=== PATIENT | female | born 1975 | race African-American/Black ===

== ENCOUNTER → 2018-07-13 | Outpatient (CLI) | payer SELFPAY | LOC: HHS 09:43 | DX: Z12.31 Encounter for screening mammogram for malignant neoplasm of breast (principal) ==

== ENCOUNTER 2018-09-12 22:59 | Emergency (ER) | payer SELFPAY ==
[2018-09-13] MEDS ORDERED: ASPIRIN 81 MG TABLET, CHEWABLE PO ONE (00:28)
[2018-09-13 01:11] LABS: ABSOLUTE EOSINOPHILS # (AUTO) 0.1 10^3/uL (0.0-0.6); ABSOLUTE LYMPHOCYTES (AUTO) 1.7 10^3/uL (0.5-4.7); ABSOLUTE MONOCYTES (AUTO) 0.3 10^3/uL (0.1-1.4); ABSOLUTE NEUT (AUTO) 3.5 10^3/uL (1.7-8.2); BASOPHILS % (AUTO) 0.7 % (0-2); EOSINOPHILS % (AUTO) 1.7 % (0-6); HEMATOCRIT 39.9 % (36.0-47.0); HEMOGLOBIN 13.7 g/dL (12.0-15.5); LYMPHOCYTES % (AUTO) 29.5 % (13-45); MEAN CORPUSCULAR HEMOGLOBIN 32.4 pg (27.0-33.4); MEAN CORPUSCULAR HGB CONC 34.3 g/dL (32.0-36.0); MEAN CORPUSCULAR VOLUME 95 fl (80-97); MONOCYTES % (AUTO) 5.9 % (3-13); PLATELET COUNT 311 10^3/uL (150-450); RED BLOOD COUNT 4.23 10^6/uL (3.72-5.28); RED CELL DISTRIBUTION WIDTH 13.2 % (11.5-14.0); SEGMENTED NEUTROPHILS % (AUTO) 62.2 % (42-78); TOTAL CELLS COUNTED % (AUTO) 100 %; WHITE BLOOD COUNT 5.7 10^3/uL (4.0-10.5)
[2018-09-13 01:27] LABS: ALANINE AMINOTRANSFERASE 21 U/L (9-52); ALBUMIN 4.5 g/dL (3.5-5.0); ALKALINE PHOSPHATASE 50 U/L (38-126); ANION GAP 9 (5-19); ASPARTATE AMINO TRANSFERASE 33 U/L (14-36); BILIRUBIN,DIRECT 0.3 mg/dL (0.0-0.4); BILIRUBIN,TOTAL 0.4 mg/dL (0.2-1.3); BLOOD UREA NITROGEN 18 mg/dL (7-20); CARBON DIOXIDE 28 mmol/L (22-30); CHLORIDE 105 mmol/L (98-107); GLUCOSE 104 mg/dL (75-110); POTASSIUM 3.4 mmol/L (3.6-5.0); SODIUM 141.5 mmol/L (137-145); TOTAL PROTEIN 7.6 g/dL (6.3-8.2)
--- NOTE | 2018-09-13 01:27 | ER Document Report ---
ED General - General Chief Complaint: Palpitations Stated Complaint: SHIVERS ON AND OFF Time Seen by Provider: 09/13/18 00:59 Primary Care Provider: MIKAL HUSAIN MD [NO LOCAL MD] - Follow up as needed Notes: Patient is a 42-year-old female that comes to the emergency department for chief complaint of an episode that happened prior to arrival where she felt like she had a strange feeling come over her whole body and then she started shaking in her arms and legs. She states she cannot stop shaking for several minutes and felt jittery. Afterwards this resolved. She did not lose consciousness, she denies palpitations, dizziness, chest pain, shortness of breath, nausea/vomiting, fever. She states she did eat dinner at 7 PM this evening and she did go to [employer]. She denies any current symptoms. She denies alcohol, recreational drugs. She smokes cigarettes, takes medication for hypertension and hyperlipidemia, has had , denies medical history otherwise. Significant other at bedside. TRAVEL OUTSIDE OF THE [place] IN LAST 30 DAYS: No - Related Data Allergies/Adverse Reactions: Sulfa (Sulfonamide Antibiotics) Allergy (Verified 07/09/12 17:28) Hives sulfamethoxazole [From Septra] Allergy (Verified 07/09/12 17:28) hives, chills, hallunciation trimethoprim [From Septra] Allergy (Verified 07/09/12 17:28) hives, chills, hallunciation Past Medical History - General Information source: Patient - Social History Smoking Status: Current Every Day Smoker Smoking Education Provided: Yes - <3 min Frequency of alcohol use: None Drug Abuse: None Lives with: Family Family History: Reviewed & Not Pertinent - Past Medical History Cardiac Medical History: Reports: Hx Hypertension Past Surgical History: Reports: Hx Section - x 3 - Immunizations Hx Diphtheria, Pertussis, Tetanus Vaccination: Yes Review of Systems - Review of Systems Constitutional: See HPI EENT: No symptoms reported Cardiovascular: No symptoms reported Respiratory: No symptoms reported Gastrointestinal: No symptoms reported Genitourinary: No symptoms reported Female Genitourinary: No symptoms reported Musculoskeletal: See HPI Skin: No symptoms reported Hematologic/Lymphatic: No symptoms reported Neurological/Psychological: No symptoms reported Physical Exam - Vital signs Vitals: Temp Pulse Resp BP Pulse Ox 98.2 F 76 18 131/87 H 99 09/12/18 23:10 09/12/18 23:10 09/12/18 23:10 09/12/18 23:10 09/12/18 23:10 - Notes Notes: GENERAL: Alert, interacts well. No acute distress. HEAD: Normocephalic, atraumatic. EYES: Pupils equal, round, and reactive to light. Extraocular movements intact. ENT: Oral mucosa moist, tongue midline. Oropharynx unremarkable. Airway patent. Nares patent, no nasal septal hematoma, TM's intact. NECK: Full range of motion. Supple. Trachea midline. LUNGS: Clear to auscultation bilaterally, no wheezes, rales, or rhonchi. No respiratory distress. HEART: Regular rate and rhythm. No murmur ABDOMEN: Soft, non-tender. Non-distended. Bowel sounds present in all 4 quadrants. GENITOURINARY: Deferred EXTREMITIES: Moves all 4 extremities spontaneously. No edema, normal radial and dorsalis pedis pulses bilaterally. No cyanosis. BACK: no cervical, thoracic, lumbar midline tenderness. No saddle anesthesia, normal distal neurovascular exam. Moves all extremities in full range of motion. NEUROLOGICAL: Alert and oriented x3. Normal speech. Cranial nerves II through XII grossly intact. PSYCH: Normal affect, normal mood. SKIN: Warm, dry, normal turgor. No rashes or lesions noted. Course - Re-evaluation Re-evalutation: Patient is alert and well-appearing on my evaluation. EKG shows sinus rhythm at a rate of 69, normal QTC, normal axis, possible abnormal R wave progression, no T wave inversions or ST segment changes in consecutive leads. Patient has not had any chest pain, dizziness, nausea, abdominal pain, or any other symptoms other than what sounds like either a chill or muscular cramps. Slightly strange description of symptoms. CBC, chemistry unremarkable except for hypokalemia. Troponin negative. TSH unremarkable, magnesium unremarkable. Reevaluated patient. She is still asymptomatic. Patient was given a dose of potassium. Patient states that previously she was told her potassium was low, she was able to change this by dietary supplements instead of pills. I suspect her hydrochlorothiazide is the culprit with this. I did discuss possible pot assium supplementation, she will supplement with diet, she will have this rechecked with primary care closely. Hypokalemia could be contributing to her symptoms, her symptoms are not concerning for an emergent standpoint based on her description, she remains very well-appearing on reevaluation, I discussed her work-up, follow-up, and return precautions in detail. Patient states satisfaction agreement. Stable at time of discharge. - Vital Signs Vital signs: Temp Pulse Resp BP Pulse Ox 98.1 F 60 15 130/86 H 99 09/13/18 02:37 09/13/18 02:37 09/13/18 02:37 09/13/18 02:37 09/13/18 02:37 - Laboratory Result Diagrams: 09/13/18 01:00 09/13/18 01:00 Laboratory results interpreted by me: 09/13/18 01:00 Potassium 3.4 L Discharge - Discharge Clinical Impression: Shaking, Hypokalemia Condition: Stable Disposition: HOME, SELF-CARE Additional Instructions: Your evaluation and work-up are reassuring, your potassium is low, this is been supplemented, supplement potassium in your diet and follow-up with your primary care for additional management. Her hydrochlorothiazide might be the reason your potassium has dropped, you may need a potassium supplement or other management. Return for any concerning symptoms including dizziness, palpitations, passing out, pain in your chest, fever, difficulty breathing, or any other concerning symptoms. Forms: Return to Work Referrals: MIKAL HUSAIN MD [NO LOCAL MD] - Follow up as needed
[2018-09-13] MEDS ORDERED: POTASSIUM CHLORIDE 10 MEQ CAPSULE.ER PO ONE (01:58)
--- NOTE | 2018-09-13 02:00 | RADIOLOGY REPORT (SQ) ---
EXAM DESCRIPTION: XR CHEST 1 VIEW COMPLETED DATE/TME: 09/13/2018 00:28 CLINICAL HISTORY: 42 years Female, CHEST PAIN COMPARISON: None. NUMBER OF VIEWS/TECHNIQUE: 1/AP FINDINGS: Adequate lung volume, clear parenchyma, normal cardiac silhouette, and intact bony thorax. IMPRESSION: No acute cardiopulmonary findings.
[2018-09-13 02:41] VITALS: BP 130/86
--- NOTE | 2018-09-13 14:02 | EKG REPORT ---
SEVERITY:- ABNORMAL ECG - SINUS RHYTHM ABNRM R PROG, CONSIDER ASMI OR LEAD PLACEMENT : Confirmed by: Alma Powell 13-Sep-2018 14:02:09
== END 2018-09-13 02:41 | disposition home or self-care (01) ==
LOC: ER 22:59
DX: E87.6 Hypokalemia (principal); R25.9 Unspecified abnormal involuntary movements; R00.2 Palpitations; F17.200 Nicotine dependence, unspecified, uncomplicated; Z88.2 Allergy status to sulfonamides; Z88.3 Allergy status to other anti-infective agents
CPT/HCPCS: 36415; 71045; 80053; 83735; 84443; 84484; 85025; 93005; 93010; 99284

== ENCOUNTER 2018-10-06 22:52 | Emergency (ER) | payer OTHER ==
[2018-10-07 01:46] LABS: ABSOLUTE EOSINOPHILS # (AUTO) 0.2 10^3/uL (0.0-0.6); ABSOLUTE LYMPHOCYTES (AUTO) 3.1 10^3/uL (0.5-4.7); ABSOLUTE MONOCYTES (AUTO) 0.4 10^3/uL (0.1-1.4); ABSOLUTE NEUT (AUTO) 2.5 10^3/uL (1.7-8.2); BASOPHILS % (AUTO) 0.7 % (0-2); EOSINOPHILS % (AUTO) 2.7 % (0-6); HEMATOCRIT 39.1 % (36.0-47.0); HEMOGLOBIN 13.5 g/dL (12.0-15.5); LYMPHOCYTES % (AUTO) 49.9 % (13-45); MEAN CORPUSCULAR HGB CONC 34.5 g/dL (32.0-36.0); MEAN CORPUSCULAR VOLUME 96 fl (80-97); MONOCYTES % (AUTO) 7.1 % (3-13); PLATELET COUNT 355 10^3/uL (150-450); RED BLOOD COUNT 4.08 10^6/uL (3.72-5.28); RED CELL DISTRIBUTION WIDTH 13.2 % (11.5-14.0); SEGMENTED NEUTROPHILS % (AUTO) 39.6 % (42-78); TOTAL CELLS COUNTED % (AUTO) 100 %; WHITE BLOOD COUNT 6.3 10^3/uL (4.0-10.5)
--- NOTE | 2018-10-07 01:53 | ER Document Report ---
ED Medical Screen (RME) - General Chief Complaint: Medical Complaint Stated Complaint: SHAKING Time Seen by Provider: 10/07/18 01:31 Primary Care Provider: MOODY JUAREZ MD [Primary Care Provider] - Follow up as needed Mode of Arrival: Ambulatory Information source: Patient Notes: Patient is a 42-year-old female past medical history of hypertension presenting to the emergency department chief complaint of altered sensation in the left side of her face and generalized shaking. Patient reports this is been going on for about a month. She does report changes recently to her blood pressure medications, states last time this happened she was having low potassium. Patient denies any unilateral weakness. Patient is alert, answering all questions appropriately. Exam: Patient alert, oriented, answering all questions properly. No focal neurological deficits noted. 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 Face symmetrical. I have greeted and performed a rapid initial assessment of this patient. A comprehensive ED assessment and evaluation of the patient, analysis of test results and completion of the medical decision making process will be conducted by additional ED providers. I have specifically instructed the patient or family members with the patient to immediately return to any nursing staff should anything change in the patient's condition or with their chief complaint. This medical record was dictated with voice recognizing software. There may be grammatical, syntax errors that are unintended. TRAVEL OUTSIDE OF THE [place] IN LAST 30 DAYS: No - Related Data Allergies/Adverse Reactions: Sulfa (Sulfonamide Antibiotics) Allergy (Verified 10/07/18 01:39) Hives sulfamethoxazole [From Novra] Allergy (Verified 10/07/18 01:39) hives, chills, hallunciation trimethoprim [From Novra] Allergy (Verified 10/07/18 01:39) hives, chills, hallunciation Past Medical History - Social History Frequency of alcohol use: None Drug Abuse: None - Past Medical History Cardiac Medical History: Reports: Hx Hypercholesterolemia, Hx Hypertension Renal/ Medical History: Denies: Hx Peritoneal Dialysis Past Surgical History: Reports: Hx Section - x 3 - Immunizations Hx Diphtheria, Pertussis, Tetanus Vaccination: Yes Physical Exam - Vital signs Vitals: Temp Pulse Resp BP Pulse Ox 98.2 F 80 18 135/83 H 100 10/06/18 23:02 10/06/18 23:02 10/06/18 23:02 10/06/18 23:02 10/06/18 23:02 Course - Vital Signs Vital signs: Temp Pulse Resp BP Pulse Ox 98.2 F 80 18 135/83 H 100 10/06/18 23:02 10/06/18 23:02 10/06/18 23:02 10/06/18 23:02 10/06/18 23:02 - Laboratory Result Diagrams: 10/07/18 01:14 10/07/18 01:14 Laboratory results interpreted by me: 10/07/18 01:14 Seg Neutrophils % 39.6 L Lymphocytes % 49.9 H Doctor's Discharge - Discharge Referrals: MOODY JUAREZ MD [Primary Care Provider] - Follow up as needed
[2018-10-07 01:56] LABS: ALANINE AMINOTRANSFERASE 14 U/L (9-52); ALBUMIN 4.3 g/dL (3.5-5.0); ALKALINE PHOSPHATASE 47 U/L (38-126); ANION GAP 9 (5-19); ASPARTATE AMINO TRANSFERASE 26 U/L (14-36); BILIRUBIN,DIRECT 0.3 mg/dL (0.0-0.4); BILIRUBIN,TOTAL 0.3 mg/dL (0.2-1.3); BLOOD UREA NITROGEN 16 mg/dL (7-20); CARBON DIOXIDE 25 mmol/L (22-30); CHLORIDE 106 mmol/L (98-107); CREATINE KINASE 152 U/L (30-135); GLUCOSE 97 mg/dL (75-110); POTASSIUM 4.1 mmol/L (3.6-5.0); TOTAL PROTEIN 7.3 g/dL (6.3-8.2)
[2018-10-07 01:59] LABS: APPEARANCE,URINE CLOUDY; BILIRUBIN,URINE NEGATIVE (NEGATIVE); COLOR,URINE YELLOW; GLUCOSE, URINE NEGATIVE (NEGATIVE); KETONES,URINE TRACE mg/dL (NEGATIVE); LEUKOCYTE ESTERASE,URINE MODERATE (NEGATIVE); NITRITE,URINE NEGATIVE (NEGATIVE); PROTEIN,URINE NEGATIVE (NEGATIVE); URINE SPECIFIC GRAVITY 1.024
[2018-10-07 02:08] LABS: CREATINE KINASE MB 0.98 ng/mL (<4.55)
[2018-10-07 02:09] LABS: TROPONIN I < 0.012 ng/mL
[2018-10-07 02:28] LABS: URINE AMPHETAMINES SCREEN NEGATIVE; URINE BARBITURATES SCREEN NEGATIVE; URINE BENZODIAZEPINES SCREEN NEGATIVE; URINE COCAINE SCREEN NEGATIVE; URINE MARIJUANA (THC) SCREEN UNCONFIRMED POSITIVE; URINE METHADONE SCREEN NEGATIVE; URINE PHENCYCLIDINE SCREEN NEGATIVE
[2018-10-07] MEDS ORDERED: CEPHALEXIN 500 MG CAPSULE PO ONE (02:29)
--- NOTE | 2018-10-07 02:30 | ER Document Report ---
ED General - General Chief Complaint: Medical Complaint Stated Complaint: SHAKING Time Seen by Provider: 10/07/18 01:31 Primary Care Provider: MOODY JUAREZ MD [Primary Care Provider] - Follow up as needed Mode of Arrival: Ambulatory Information source: Patient, Friend, [facility] Records Notes: 42-year-old female with hypertension, hyperlipidemia presents with complaints of forehead "twitching" body "chills" sensation in her abdomen of movement for which she was seen by [facility] and has an ultrasound scheduled and muscle aches that have been ongoing since September 12, 2018. At that time patient was found to have low potassium and was taken off of her hydrochlorothiazide and started on amlodipine. Patient denies any headache, visual changes, nausea, slurred speech , difficulty swallowing, chest pain, shortness of breath, abdominal pain, dysuria, hematuria, vaginal discharge. TRAVEL OUTSIDE OF THE [place] IN LAST 30 DAYS: No - HPI Onset: Other Onset/Duration: Intermittent Quality of pain: No pain, Other - Twitching Severity: None Pain Level: Denies Associated symptoms: Body/muscle aches, Chills. denies: Nonproductive cough, Productive cough, Earache, Fever, Hurts to breath, Leg swelling, Nausea, Vomiting, Shortness of breath, Sore throat Exacerbated by: Denies Relieved by: Denies Similar symptoms previously: Yes Recently seen / treated by doctor: Yes - Related Data Allergies/Adverse Reactions: Sulfa (Sulfonamide Antibiotics) Allergy (Verified 10/07/18 01:39) Hives sulfamethoxazole [From Septra] Allergy (Verified 10/07/18 01:39) hives, chills, hallunciation trimethoprim [From Septra] Allergy (Verified 10/07/18 01:39) hives, chills, hallunciation Past Medical History - General Information source: Patient - Social History Smoking Status: Current Every Day Smoker Cigarette use (# per day): Yes - 12 Smoking Education Provided: Yes - Smoking cessation counseling was provided for 4 minutes at the bedside Frequency of alcohol use: None Drug Abuse: None Lives with: Spouse/Significant other Family History: Reviewed & Not Pertinent Patient has suicidal ideation: No Patient has homicidal ideation: No - Past Medical History Cardiac Medical History: Reports: Hx Hypercholesterolemia, Hx Hypertension Renal/ Medical History: Denies: Hx Peritoneal Dialysis Past Surgical History: Reports: Hx Section - x 3 - Immunizations Hx Diphtheria, Pertussis, Tetanus Vaccination: Yes Review of Systems - Review of Systems Notes: REVIEW OF SYSTEMS: CONSTITUTIONAL : Denies fever, sweats. Denies recent illness. Denies weight loss, recent hospitalizations. EENT: Denies visual changes, eye pain. Denies sore throat, oral lesions, difficulty swallowing. CARDIOVASCULAR: Denies chest pain. Denies palpitations. Denies lower extremity edema. RESPIRATORY: Denies cough. Denies shortness of breath, wheezing. GASTROINTESTINAL: Denies abdominal pain or distention. Denies nausea, vomiting, or diarrhea. Denies blood in vomitus, stools, or per rectum. Denies black, tarry stools. Denies constipation. GENITOURINARY: Denies difficulty urinating, painful urination, frequency, blood in urine, or vaginal discharge. MUSCULOSKELETAL: Denies neck pain or stiffness. Denies joint pain or swelling. SKIN: Denies rash, lesions or sores. HEMATOLOGIC : Denies easy bruising or bleeding. LYMPHATIC: Denies swollen glands. NEUROLOGICAL: Denies confusion or altered mental status. Denies loss of consciousness. Denies dizziness or lightheadedness. Denies headache. Denies weakness or paralysis. Denies problems difficulty with ambulation, slurred speech. Denies sensory loss, numbness, or tingling. Denies seizures. PSYCHIATRIC: Denies anxiety or stress. Denies depression, suicidal ideation, or homicidal ideation. Denies visual or auditory hallucinations. Physical Exam - Vital signs Vitals: Temp Pulse Resp BP Pulse Ox 98.2 F 80 18 135/83 H 100 10/06/18 23:02 10/06/18 23:02 10/06/18 23:02 10/06/18 23:02 10/06/18 23:02 - Notes Notes: PHYSICAL EXAMINATION: GENERAL: Well-appearing, well-nourished and in no acute distress. HEAD: Atraumatic, normocephalic. EYES: Pupils equal round and reactive to light, extraocular movements intact, conjunctiva are normal. No temporal artery tenderness ENT: Nares patent, oropharynx clear without exudates. Moist mucous membranes. NECK: Normal range of motion, supple without lymphadenopathy LUNGS: Breath sounds clear to auscultation bilaterally and equal. No wheezes rales or rhonchi. HEART: Regular rate and rhythm without murmurs ABDOMEN: Soft, nontender, nondistended abdomen. No guarding, no rebound. No masses appreciated. Female : deferred Musculoskeletal: Normal range of motion, no pitting or edema. No cyanosis. NEUROLOGICAL: Cranial nerves grossly intact. Normal speech, normal gait. Normal sensory, motor exams. NIH 0 PSYCH: Normal mood, normal affect. SKIN: Warm, Dry, normal turgor, no rashes or lesions noted. Course - Re-evaluation Re-evalutation: 10/07/18 02:29 Laboratory 10/07/18 10/07/18 10/07/18 01:14 01:14 01:14 WBC 6.3 RBC 4.08 Hgb 13.5 Hct 39.1 MCV 96 MCH 33.0 MCHC 34.5 RDW 13.2 Plt Count 355 Seg Neutrophils % 39.6 L Lymphocytes % 49.9 H Monocytes % 7.1 Eosinophils % 2.7 Basophils % 0.7 Absolute Neutrophils 2.5 Absolute Lymphocytes 3.1 Absolute Monocytes 0.4 Absolute Eosinophils 0.2 Absolute Basophils 0.0 Sodium 139.5 Potassium 4.1 Chloride 106 Carbon Dioxide 25 Anion Gap 9 BUN 16 Creatinine 0.58 Est GFR ( Amer) > 60 Est GFR (Non-Af Amer) > 60 Glucose 97 Calcium 10.0 Magnesium 1.9 Total Bilirubin 0.3 Direct Bilirubin 0.3 Neonat Total Bilirubin Not Reportable Neonat Direct Bilirubin Not Reportable Neonat Indirect Bili Not Reportable AST 26 ALT 14 Alkaline Phosphatase 47 Creatine Kinase 152 H CK-MB (CK-2) 0.98 Troponin I < 0.012 Total Protein 7.3 Albumin 4.3 Lipase 151.6 Urine Color Urine Appearance Urine pH Ur Specific Ward Urine Protein Urine Glucose (UA) Urine Ketones Urine Blood Urine Nitrite Urine Bilirubin Urine Urobilinogen Ur Leukocyte Esterase Urine WBC (Auto) Urine RBC (Auto) Urine Bacteria (Auto) Squamous Epi Cells Auto Urine Mucus (Auto) Urine Ascorbic Acid Urine HCG, Qual 10/07/18 01:14 WBC RBC Hgb Hct MCV MCH MCHC RDW Plt Count Seg Neutrophils % Lymphocytes % Monocytes % Eosinophils % Basophils % Absolute Neutrophils Absolute Lymphocytes Absolute Monocytes Absolute Eosinophils Absolute Basophils Sodium Potassium Chloride Carbon Dioxide Anion Gap BUN Creatinine Est GFR ( Amer) Est GFR (Non-Af Amer) Glucose Calcium Magnesium Total Bilirubin Direct Bilirubin Neonat Total Bilirubin Neonat Direct Bilirubin Neonat Indirect Bili AST ALT Alkaline Phosphatase Creatine Kinase CK-MB (CK-2) Troponin I Total Protein Albumin Lipase Urine Color YELLOW Urine Appearance CLOUDY Urine pH 6.0 Ur Specific Ward 1.024 Urine Protein NEGATIVE Urine Glucose (UA) NEGATIVE Urine Ketones TRACE H Urine Blood NEGATIVE Urine Nitrite NEGATIVE Urine Bilirubin NEGATIVE Urine Urobilinogen 2.0 H Ur Leukocyte Esterase MODERATE H Urine WBC (Auto) 54 Urine RBC (Auto) 22 Urine Bacteria (Auto) TRACE Squamous Epi Cells Auto 31 Urine Mucus (Auto) MANY Urine Ascorbic Acid 40 H Urine HCG, Qual NEGATIVE Temp Pulse Resp BP Pulse Ox 98.2 F 80 18 135/83 H 100 10/06/18 23:02 10/06/18 23:02 10/06/18 23:02 10/06/18 23:02 10/06/18 23:[address] 10/07/18 01:50 IMPRESSION: No acute intracranial abnormality. 10/07/18 03:18 Patient presents with symptoms consistent with an acute cystitis. Vitals wnl. No history of fever, flank pain, or constitution symptoms to suggest ascending infection at this time. Patient is well in appearance, tolerating oral intake without difficulty. No focal abdominal tenderness to suggest acute appendicitis, biliary pathology, acute pancreatitis, tubo-ovarian abscesses, or pelvic inflammatory disease. Patient will be started on antibiotics at this time. A culture has been sent. They will be discharged with return precautions and follow-up recommendations. 10/08/18 16:18 - Vital Signs Vital signs: Temp Pulse Resp BP Pulse Ox 98.1 F 75 18 143/90 H 100 10/07/18 03:37 10/07/18 03:37 10/07/18 03:37 10/07/18 03:37 10/07/18 03:37 - Laboratory Result Diagrams: 10/07/18 01:14 10/07/18 01:14 Laboratory results interpreted by me: 10/07/18 10/07/18 10/07/18 01:14 01:14 01:14 Seg Neutrophils % 39.6 L Lymphocytes % 49.9 H Creatine Kinase 152 H Urine Ketones TRACE H Urine Urobilinogen 2.0 H Ur Leukocyte Esterase MODERATE H Urine Ascorbic Acid 40 H - Diagnostic Test Radiology reviewed: Image reviewed, Reports reviewed Discharge - Discharge Clinical Impression: Chills (without fever), Facial twitching, Marijuana use Urinary tract infection Qualifiers: Urinary tract infection type: site unspecified Hematuria presence: without hematuria Qualified Code(s): N39.0 - Urinary tract infection, site not specified Condition: Good Disposition: HOME, SELF-CARE Instructions: Urinary Tract Infection ([facility]) Additional Instructions: Your urine shows findings consistent with a urinary tract infection. Please take all the antibiotics as directed even if your symptoms have improved. Please follow-up with your primary care physician as needed. Return to emergency room if you develop fever >101F, persistent vomiting, become lethargic, have severe pain in your sides, or any other symptoms that are concerning to you. Prescriptions: Cephalexin Monohydrate [Keflex 500 mg Capsule] 500 mg PO BID 5 Days #10 capsule Forms: Elevated Blood Pressure, Smoking Cessation Education Referrals: MOODY JUAREZ MD [Primary Care Provider] - Follow up as needed
--- NOTE | 2018-10-07 02:51 | RADIOLOGY REPORT (SQ) ---
CT head without contrast on 10/07/2018 at 1:57 AM CLINICAL INDICATION: Altered sensation in left face, shaking TECHNIQUE: Multiple axial images are obtained throughout the head without the administration of contrast. This exam was performed according to our departmental dose-optimization program, which includes automated exposure control, adjustment of the mA and/or kV according to patient size and/or use of iterative reconstruction technique. Total DLP is 990.56 mGy*cm. COMPARISON: None FINDINGS: There is no hydrocephalus. There is no CT evidence of acute infarct. There is no hemorrhage. There are no abnormal extra-axial fluid collections. There is no mass, mass effect or midline shift. No bony abnormality is noted. IMPRESSION: No acute intracranial abnormality.
[2018-10-07 03:37] VITALS: BP 143/90
== END 2018-10-07 03:39 | disposition home or self-care (01) ==
LOC: ER 22:52
PROC: HZ31ZZZ Individual Counseling for Substance Abuse Treatment, Behavioral (ICD-10-PCS; principal; 2018-10-06)
DX: R25.3 Fasciculation (principal); N39.0 Urinary tract infection, site not specified; R68.83 Chills (without fever); F12.90 Cannabis use, unspecified, uncomplicated; I10 Essential (primary) hypertension; E78.5 Hyperlipidemia, unspecified; F17.210 Nicotine dependence, cigarettes, uncomplicated; Z79.899 Other long term (current) drug therapy
CPT/HCPCS: 36415; 70450; 80053; 80307; 81001; 81025; 82550; 82553; 83690; 83735; 84484; 85025; 99284; 99406

== ENCOUNTER → 2018-10-11 | Outpatient (CLI) | payer OTHER ==
--- NOTE | 2018-10-11 13:14 | WOMENS IMAGING REPORT ---
EXAM DESCRIPTION: U/S ABDOMEN TOTAL COMPLETED DATE/TIME: 10/11/2018 10:47 am REASON FOR STUDY: R10.31 RIGHT LOWER QUADRANT PAIN R10.31 RIGHT LOWER QUADRANT PAIN COMPARISON: None. TECHNIQUE: Dynamic and static grayscale images acquired of the abdomen and recorded on PACS. Additio nal selected color Doppler and spectral images recorded. Note: Study does not meet criteria for complete doppler/duplex scan LIMITATIONS: None. FINDINGS: PANCREAS: Midline pancreas unremarkable. LIVER: No masses. Echotexture normal. LIVER VASCULATURE: Normal directional flow of the main portal vein and hepatic veins. GALLBLADDER: Partially contracted. No stones. Normal wall thickness. No pericholecystic fluid. ULTRASOUND-DETECTED MAHAJAN'S SIGN: Negative. INTRAHEPATIC DUCTS AND COMMON DUCT: CBD and intrahepatic ducts normal caliber. No filling defects. INFERIOR VENA CAVA: Normal flow. AORTA: No aneurysm. RIGHT KIDNEY: Normal size. Normal echogenicity. No solid or suspicious masses. No hydronephros is. No calcifications. LEFT KIDNEY: Normal size. Normal echogenicity. No solid or suspicious masses. No hydronephrosi s. No calcifications. SPLEEN: Normal size. No solid masses. PERITONEAL AND PLEURAL SPACES: No ascites or effusions. OTHER: No other significant finding. IMPRESSION: NORMAL ABDOMINAL ULTRASOUND. TECHNICAL DOCUMENTATION: JOB ID: [id number] [employer]- All Rights Reserved Reading location - IP/workstation name: [email or web address]
--- NOTE | 2018-10-11 13:16 | WOMENS IMAGING REPORT ---
EXAM DESCRIPTION: U/S PELVIS NON-OB COMPLETED DATE/TIME: 10/11/2018 10:47 am REASON FOR STUDY: R10.31 RIGHT LOWER QUADRANT PAIN R10.31 RIGHT LOWER QUADRANT PAIN COMPARISON: None. TECHNIQUE: Dynamic and static grayscale images acquired of the pelvis via transabdominal approach an d recorded on PACS. Additional selected color Doppler and spectral images recorded. LIMITATIONS: None. FINDINGS: UTERUS: Contour normal. No mass. Uterus is 14 x 7 x 4 cm in size ENDOMETRIAL STRIPE: No focal or generalized thickening. No masses. Endometrium 5 mm in thickness. CERVIX: No nabothian cysts. Closed, 3 cm in length. RIGHT OVARY AND DOPPLER: Normal size, 4.4 x 3.7 x 2.7 cm in size with a 2 cm simple cyst. No worriso me masses. Normal arterial vascular flow without evidence for torsion. LEFT OVARY AND DOPPLER: Not visualized FREE FLUID: None noted. OTHER: No other significant finding. IMPRESSION: Nonvisualization left ovary. 2 cm simple cyst right ovary. Otherwise unremarkable study TECHNICAL DOCUMENTATION: JOB ID: [id number]- All Rights Reserved Rev-07/27 Reading location - IP/workstation name: [email or web address]
== END ==
LOC: WI 09:46
PROVIDERS: ATTEND Nurse Practitioner Family
DX: R10.9 Unspecified abdominal pain (principal)
CPT/HCPCS: 76700; 76856

== ENCOUNTER 2018-11-01 14:08 | Emergency (ER) | payer OTHER ==
[2018-11-01 17:01] LABS: APPEARANCE,URINE CLEAR; BILIRUBIN,URINE NEGATIVE (NEGATIVE); COLOR,URINE STRAW; GLUCOSE, URINE NEGATIVE (NEGATIVE); KETONES,URINE NEGATIVE (NEGATIVE); LEUKOCYTE ESTERASE,URINE TRACE (NEGATIVE); NITRITE,URINE NEGATIVE (NEGATIVE); PROTEIN,URINE NEGATIVE (NEGATIVE); URINE SPECIFIC GRAVITY 1.004; UROBILINOGEN,URINE NEGATIVE mg/dL (<2.0)
--- NOTE | 2018-11-01 17:29 | ER Document Report ---
HPI - HPI Time Seen by Provider: 11/01/18 15:28 Pain Level: 4 Notes: Patient is an otherwise healthy 42-year-old female presented to the emergency department chief complaint of right sided low back pain. Patient reports his back pain has been going on for several weeks. She does report she had a recent UTI that she took and completed a course of antibiotics for. She denies any dysuria, abdominal pain or fevers. - GASTROINTESTINAL Gastrointestinal: REPORTS: Abdominal Pain - REPRODUCTIVE Reproductive: DENIES: : Past Medical History - General Information source: Patient - Social History Smoking Status: Current Every Day Smoker Chew tobacco use (# tins/day): No Frequency of alcohol use: None Drug Abuse: None Family History: Reviewed & Not Pertinent Patient has suicidal ideation: No Patient has homicidal ideation: No - Past Medical History Cardiac Medical History: Reports: Hx Hypercholesterolemia, Hx Hypertension Renal/ Medical History: Denies: Hx Peritoneal Dialysis Past Surgical History: Reports: Hx Section - x 3 - Immunizations Hx Diphtheria, Pertussis, Tetanus Vaccination: Yes Vertical Provider Document - CONSTITUTIONAL Notes: PHYSICAL EXAMINATION: GENERAL: Well-appearing, well-nourished and in no acute distress. HEAD: Atraumatic, normocephalic. EYES: Pupils equal round extraocular movements intact, conjunctiva are normal. ENT: Nares patent NECK: Normal range of motion LUNGS: No respiratory distress abdomen: Abdomen soft, nontender with no guarding and no rebound. Musculoskeletal: Normal range of motion, tenderness to palpation to the right lumbar paraspinous region, no CVA tenderness. NEUROLOGICAL: Normal speech, normal gait. PSYCH: Normal mood, normal affect. SKIN: Warm, Dry, normal turgor, no rashes or lesions noted. - INFECTION CONTROL TRAVEL OUTSIDE OF THE [place] IN LAST 30 DAYS: No Course - Re-evaluation Re-evalutation: History and physical examination most consistent with lumbar strain. Urinalysis was obtained as patient has recently had a urinary tract infection, the urinalysis is unremarkable, no evidence of infection. Patient will be treated with muscle relaxers and close follow-up with her PCP. Patient verbalized understanding and agreement with this plan. The patient's emergency department workup and current diagnosis were explained to the patient and or family. Follow-up instructions were provided. Medications if prescribed were discussed. Instructions for when to return to the emergency department including specific worrisome symptoms were discussed with the patient and/or family. - Vital Signs Vital signs: Temp Pulse Resp BP Pulse Ox 98.7 F 80 16 149/86 H 98 11/01/18 14:20 11/01/18 14:20 11/01/18 14:20 11/01/18 14:20 11/01/18 14:20 - Laboratory Laboratory results interpreted by me: 11/01/18 15:55 Urine Blood SMALL H Ur Leukocyte Esterase TRACE H Discharge - Discharge Clinical Impression: Low back pain Qualifiers: Chronicity: acute Back pain laterality: bilateral Sciatica presence: without sciatica Qualified Code(s): M54.5 - Low back pain Condition: Stable Disposition: HOME, SELF-CARE Additional Instructions: You have been seen in the Emergency Department (ED) today for back pain. The urinalysis was negative today and does not show any signs of urinary tract infection. Your workup and exam have not shown any acute abnormalities and you are likely suffering from muscle strain or possible problems with your discs, but there is no treatment that will fix your symptoms at this time. Please take the muscle relaxer that has been prescribed as directed. Take ibuprofen 600 mg every 6 hours. You should also purchase a local lidocaine cream such as "aspercreme with lidocaine" and use per bottle instructions to the affected area. Apply heat to the area as often as you are able. Continue to keep active and avoid prolonged periods of bed rest. Please follow up with your doctor as soon as possible regarding today's ED visit and your back pain. Return to the ED for worsening back pain, fever, weakness or numbness of either leg, or if you develop either (1) an inability to urinate or have bowel movements, or (2) loss of your ability to control your bathroom functions (if you start having "accidents"), or if you develop other new symptoms that concern you.concern you. Prescriptions: Methocarbamol [Robaxin 750 mg Tablet] 750 mg PO Q4 #30 tablet Referrals: MOODY JUAREZ MD [Primary Care Provider] - Follow up as needed
[2018-11-01 17:43] VITALS: BP 139/93
== END 2018-11-01 17:50 | disposition home or self-care (01) ==
LOC: ER 14:08
DX: M54.5 Low back pain (principal); F17.200 Nicotine dependence, unspecified, uncomplicated; I10 Essential (primary) hypertension
CPT/HCPCS: 81001; 99283

== ENCOUNTER 2018-12-02 15:20 | Emergency (ER) | payer OTHER ==
--- NOTE | 2018-12-02 15:47 | ER Document Report ---
ED Medical Screen (RME) - General Chief Complaint: Tremor Stated Complaint: POSSIBLE MUSCLE SPAMS Time Seen by Provider: 12/02/18 15:33 Primary Care Provider: MOODY JUAREZ MD [Primary Care Provider] - Follow up as needed Notes: 42-year-old female with hypertension presents emergency department with chief complaint of muscle fasciculations. Patient states that she got a sensation on the left side of her face that then extended to her extremities this morning that lasted for about 30 minutes. Patient states that she was having these symptoms intermittently in the past when she was on a thiazide diuretic but is no longer on it. This is the first time this is happened since her medications have been switched but there has not been a new switch. She denies any prodrome, was conscious throughout the entire episode, describes it as "my muscles jumping", denies any acute limb weakness or pain, denies cramping. No other complaints Exam: Well-appearing in no acute distress, lungs clear to auscultation in all galloway, regular cardiac rate and rhythm. 5/5 strength and proximal and distal extremities, 5/5 operations/dispatch strength, sensation intact to light touch. I have greeted and performed a rapid initial assessment of this patient. A comprehensive ED assessment and evaluation of the patient, analysis of test results and completion of medical decision making process will be conducted by an additional ED providers. TRAVEL OUTSIDE OF THE [place] IN LAST 30 DAYS: No - Related Data Allergies/Adverse Reactions: Sulfa (Sulfonamide Antibiotics) Allergy (Verified 11/01/18 14:14) Hives sulfamethoxazole [From Novra] Allergy (Verified 11/01/18 14:14) hives, chills, hallunciation trimethoprim [From Novra] Allergy (Verified 11/01/18 14:14) hives, chills, hallunciation Past Medical History - Past Medical History Cardiac Medical History: Reports: Hx Hypercholesterolemia, Hx Hypertension Renal/ Medical History: Denies: Hx Peritoneal Dialysis Past Surgical History: Reports: Hx Section - x 3 - Immunizations Hx Diphtheria, Pertussis, Tetanus Vaccination: Yes Physical Exam - Vital signs Vitals: Temp Pulse Resp BP Pulse Ox 98.6 F 103 H 15 122/72 97 12/02/18 15:27 12/02/18 15:27 12/02/18 15:27 12/02/18 15:27 12/02/18 15:27 Course - Vital Signs Vital signs: Temp Pulse Resp BP Pulse Ox 98.6 F 103 H 15 122/72 97 12/02/18 15:27 12/02/18 15:27 12/02/18 15:27 12/02/18 15:27 12/02/18 15:27 Doctor's Discharge - Discharge Referrals: MOODY JUAREZ MD [Primary Care Provider] - Follow up as needed
[2018-12-02 16:15] LABS: ABSOLUTE EOSINOPHILS # (AUTO) 0.1 10^3/uL (0.0-0.6); ABSOLUTE LYMPHOCYTES (AUTO) 2.6 10^3/uL (0.5-4.7); ABSOLUTE MONOCYTES (AUTO) 0.4 10^3/uL (0.1-1.4); ABSOLUTE NEUT (AUTO) 2.1 10^3/uL (1.7-8.2); BASOPHILS % (AUTO) 0.7 % (0-2); HEMATOCRIT 40.9 % (36.0-47.0); HEMOGLOBIN 13.9 g/dL (12.0-15.5); MEAN CORPUSCULAR HEMOGLOBIN 32.1 pg (27.0-33.4); MEAN CORPUSCULAR HGB CONC 33.9 g/dL (32.0-36.0); MEAN CORPUSCULAR VOLUME 95 fl (80-97); PLATELET COUNT 354 10^3/uL (150-450); RED BLOOD COUNT 4.33 10^6/uL (3.72-5.28); RED CELL DISTRIBUTION WIDTH 13.1 % (11.5-14.0); SEGMENTED NEUTROPHILS % (AUTO) 41.3 % (42-78); TOTAL CELLS COUNTED % (AUTO) 100 %; WHITE BLOOD COUNT 5.2 10^3/uL (4.0-10.5)
[2018-12-02 16:22] LABS: APPEARANCE,URINE SLIGHTLY-CLOUDY; BILIRUBIN,URINE NEGATIVE (NEGATIVE); COLOR,URINE YELLOW; GLUCOSE, URINE NEGATIVE (NEGATIVE); KETONES,URINE NEGATIVE (NEGATIVE); LEUKOCYTE ESTERASE,URINE MODERATE (NEGATIVE); NITRITE,URINE NEGATIVE (NEGATIVE); PROTEIN,URINE NEGATIVE (NEGATIVE); URINE SPECIFIC GRAVITY 1.019; UROBILINOGEN,URINE NEGATIVE mg/dL (<2.0)
[2018-12-02 16:32] LABS: ALBUMIN 4.8 g/dL (3.5-5.0); ALKALINE PHOSPHATASE 55 U/L (38-126); ANION GAP 11 (5-19); ASPARTATE AMINO TRANSFERASE 28 U/L (14-36); BILIRUBIN,DIRECT 0.1 mg/dL (0.0-0.4); BILIRUBIN,TOTAL 0.5 mg/dL (0.2-1.3); BLOOD UREA NITROGEN 15 mg/dL (7-20); CARBON DIOXIDE 25 mmol/L (22-30); CHLORIDE 103 mmol/L (98-107); GLUCOSE 96 mg/dL (75-110); POTASSIUM 3.7 mmol/L (3.6-5.0); TOTAL PROTEIN 8.3 g/dL (6.3-8.2)
--- NOTE | 2018-12-02 17:02 | ER Document Report ---
ED General - General Chief Complaint: Tremor Stated Complaint: POSSIBLE MUSCLE SPAMS Time Seen by Provider: 12/02/18 15:33 Primary Care Provider: MOODY JUAREZ MD [Primary Care Provider] - Follow up as needed TRAVEL OUTSIDE OF THE [place] IN LAST 30 DAYS: No - HPI Notes: Patient is a 42-year-old female with history of hypertension and hypercholesteremia who presents complaining of feeling her muscles "jumping" and twitching lasted for less than 30 minutes this morning and then resolved. Patient states that this is happened a couple times previously as well and was told that the first is because her potassium was low which she switch medicine for and then the next time in September she was diagnosed with a UTI here in the emergency department. Patient has had some urinary frequency recently. Patient states that the symptoms have not recurred and she is otherwise feeling well. No recent illness otherwise. No other changes in medications. Denies any headache, fever, head injury, neck pain, changes in vision/speech/mentation/hearing, URI, sore throat, chest pain, palpitations, syncope, cough, shortness of breath, wheeze, dyspnea, abdominal pain, nausea/vomiting/diarrhea, urinary retention, dysuria, hematuria, loss of control of bowel or bladder, numbness/tingling, saddle anesthesia, muscle paralysis/weakness, or rash. - Related Data Allergies/Adverse Reactions: Sulfa (Sulfonamide Antibiotics) Allergy (Verified 11/01/18 14:14) Hives sulfamethoxazole [From Novra] Allergy (Verified 11/01/18 14:14) hives, chills, hallunciation trimethoprim [From ] Allergy (Verified 11/01/18 14:14) hives, chills, hallunciation Past Medical History - Social History Smoking Status: Never Smoker Family History: Reviewed & Not Pertinent Patient has suicidal ideation: No Patient has homicidal ideation: No - Past Medical History Cardiac Medical History: Reports: Hx Hypercholesterolemia, Hx Hypertension Renal/ Medical History: Denies: Hx Peritoneal Dialysis Past Surgical History: Reports: Hx Section - x 3 - Immunizations Hx Diphtheria, Pertussis, Tetanus Vaccination: Yes Review of Systems - Review of Systems -: Yes All other systems reviewed and negative Physical Exam - Vital signs Vitals: Temp Pulse Resp BP Pulse Ox 98.6 F 103 H 15 122/72 97 12/02/18 15:27 12/02/18 15:27 12/02/18 15:27 12/02/18 15:27 12/02/18 15:27 - Notes Notes: PHYSICAL EXAMINATION: GENERAL: Well-appearing, well-nourished and in no acute distress. A&Ox4. Answers questions appropriately. HEAD: Atraumatic, normocephalic. Non-tender. EYES: Pupils equal round and reactive to light, extraocular movements intact, sclera anicteric, conjunctiva are normal. No nystagmus. vis galloway intact. ENT: Nares patent and without discharge. oropharynx clear without exudates. No tonsilar hypertrophy or erythema. Moist mucous membranes. NECK: Normal range of motion, supple without lymphadenopathy. No rigidity/meningismus. No midline tenderness. LUNGS: Breath sounds clear to auscultation bilaterally and equal. No wheezes rales or rhonchi. HEART: Regular rate and rhythm without murmurs, rubs, gallops. ABDOMEN: Soft, nontender, nondistended abdomen. No guarding, no rebound. Normal bowel sounds present. No CVA tenderness bilaterally. Musculoskeletal: Ext b/l: FROM to passive/active. Strength 5+/5. No deficits noted. No bony tenderness of extremities. Extremities: No cyanosis, clubbing, or edema b/l. Peripheral pulses 2+. Capillary refill less than 2 seconds. NEUROLOGICAL: NIH 0. GCS 15. Cranial nerves grossly intact. Normal speech, normal gait. Normal sensory, motor exams. Reflexes 2+ b/l. BELLE's negative. Pronator drift negative. Heel/peñaloza, finger/nose wnl. Romberg neg. PSYCH: Normal mood, normal affect. SKIN: Warm, Dry, normal turgor, no rashes or lesions noted. Course - Re-evaluation Re-evalutation: 12/02/18 Patient is an afebrile, well-hydrated, 42-year-old female who presents to the ED with urinary frequency and possible acute UTI. Vitals are acceptable without any significant tachycardia, tachypnea, or hypoxia. PE is otherwise unr emarkable for any focal neurological deficits. Abd is soft and non-tender. NIH 0, GCS 15, cranial nerves grossly intact. Patient has had brief symptoms like this in the past. Labs are unremarkable. No labs or imaging warranted at this time based on H&P. Pt has been otherwise asymptomatic aside from urinary frequency since this morning. She is nontoxic-appearing and is tolerating p.o. without any difficulties. Low suspicion for any acute glaucoma, temporal arteritis, meningitis, intracranial hemorrhage, ischemic stroke, acute abd, severe electrolyte abnormality, thyroid storm, or fracture at this time. Patient is aware that this condition can change from initial presentation and that she needs to monitor symptoms closely for any acute changes. Recheck with your PCM/neurologist in 3-5 days. Return to the ED with any worsening/concerning symptoms otherwise as reviewed in discharge. Patient is in agreement. - Vital Signs Vital signs: Temp Pulse Resp BP Pulse Ox 98.6 F 103 H 15 122/72 97 12/02/18 15:27 12/02/18 15:27 12/02/18 15:27 12/02/18 15:27 12/02/18 15:27 - Laboratory Result Diagrams: 12/02/18 15:45 12/02/18 15:45 Laboratory results interpreted by me: 12/02/18 12/02/18 12/02/18 15:45 15:45 15:45 Lymph % (Auto) 50.0 H Seg Neutrophils % 41.3 L Total Protein 8.3 H Urine Blood MODERATE H Ur Leukocyte Esterase MODERATE H Urine Ascorbic Acid 40 H Discharge - Discharge Clinical Impression: Acute UTI (urinary tract infection) Condition: Stable Disposition: HOME, SELF-CARE Instructions: Urinary Tract Infection ([facility]), Cephalexin ([facility]) Additional Instructions: Push fluids (i.e. water, cranberry juice) Proper hygenic technique Keep the skin clean Tylenol/ibuprofen as needed Take medications as directed F/u with your PCM in 3-5 days for a recheck Keep appointment with neurology Consider consult with a Urologist for ongoing/worsening symptoms. Return to the ED with any worsening symptoms and/or development of fever, hea dache, changes in behavior/mentation/vision/speech, chest pain, palpitations, syncope, shortness of breath, trouble breathing, abdominal pain, n/v/d, blood in stool/urine, loss of control of bowel/bladder, urinary retention, muscle weakness/paralysis, saddle anesthesia, numbness/tingling, or other worsening symptoms that are concerning to you. Prescriptions: Cephalexin Monohydrate [Keflex 500 mg Capsule] 500 mg PO TID #21 capsule Referrals: MOODY JUAREZ MD [Primary Care Provider] - Follow up as needed JACQUIE RANGEL MD [NO LOCAL MD] - Follow up as needed
[2018-12-02 17:16] LABS: CREATINE KINASE 217 U/L (30-135)
[2018-12-02 17:54] VITALS: BP 118/72
== END 2018-12-02 17:59 | disposition home or self-care (01) ==
LOC: ER 15:20
DX: N39.0 Urinary tract infection, site not specified (principal); R25.1 Tremor, unspecified; I10 Essential (primary) hypertension
CPT/HCPCS: 36415; 80053; 81001; 82550; 83735; 84443; 85025; 87086; 99284

== ENCOUNTER 2019-01-18 23:00 | Emergency (ER) | payer OTHER ==
[2019-01-18 23:13] VITALS: BP 127/76
--- NOTE | 2019-01-18 23:22 | ER Document Report ---
HPI - HPI Patient complains to provider of: chills Time Seen by Provider: 01/18/19 23:14 Pain Level: 2 Notes: 43 year old female to the ED with C /O chills that began tonight. She states that chills are her typical prodrome for UTI. States she gets frequent UTIs. States she is unsure of when her last UTI was. Also states she is concerned she may have a yeast infection. Denies any symptoms such as discharge or vaginal itching. Denies any fevers, headache, chest pain, SOB, urinary frequency, dysuria. - REPRODUCTIVE Reproductive: DENIES: : Past Medical History - General Information source: Patient - Social History Smoking Status: Current Every Day Smoker Frequency of alcohol use: Occasional Drug Abuse: None Family History: Reviewed & Not Pertinent Patient has suicidal ideation: No Patient has homicidal ideation: No - Past Medical History Cardiac Medical History: Reports: Hx Hypercholesterolemia, Hx Hypertension Renal/ Medical History: Denies: Hx Peritoneal Dialysis Past Surgical History: Reports: Hx Section - x 3 - Immunizations Hx Diphtheria, Pertussis, Tetanus Vaccination: Yes Vertical Provider Document - CONSTITUTIONAL General Appearance: WD/WN, No Apparent Distress - INFECTION CONTROL TRAVEL OUTSIDE OF THE [place] IN LAST 30 DAYS: No - HEENT HEENT: Atraumatic, PERRLA - NECK Neck: Normal Inspection, Supple - RESPIRATORY Respiratory: Breath Sounds Normal, No Respiratory Distress. negative: Rales, Rhonchi, Wheezing - CARDIOVASCULAR Cardiovascular: Regular Rate, Regular Rhythm, No Murmur - GI/ABDOMEN Gastrointestinal: Abdomen Soft, Abdomen Non-Tender, Normal Bowel Sounds. negative: Abdominal Guarding, Abdominal Rebound, No Organomegaly, Abdominal Mass, Abnormal Bowel Sounds - BACK Back: Normal Inspection. negative: CVA Tenderness-Right, CVA Tenderness-Left - NEURO Level of Consciousness: Awake, Alert, Appropriate Motor/Sensory: No Motor Deficit - DERM Integumentary: Warm, Dry, No Rash Course - Re-evaluation Re-evalutation: Laboratory 01/18/19 01/18/19 23:03 23:25 Urine Color YELLOW Urine Appearance SLIGHTLY-CLOUDY Urine pH 6.0 Ur Specific [place] 1.027 Urine Protein NEGATIVE Urine Glucose (UA) NEGATIVE Urine Ketones NEGATIVE Urine Blood NEGATIVE Urine Nitrite NEGATIVE Urine Bilirubin NEGATIVE Urine Urobilinogen 2.0 H Ur Leukocyte Esterase TRACE H Urine WBC (Auto) 12 Urine RBC (Auto) 2 Urine Bacteria (Auto) TRACE Squamous Epi Cells Auto 19 Urine Mucus (Auto) FEW Urine Ascorbic Acid 40 H Epi Cells (Wet Prep) 3+ EPITHELIALS SEEN Bacteria (Wet Prep) 4+ BACTERIA SEEN Trichomonas (Wet Prep) NO TRICHOMONAS SEEN Vaginal WBC 3+ WBCS SEEN Vaginal RBC NO RBCS SEEN Vaginal Yeast YEAST SEEN Impression: UTI with vaginal yeast infection. Will go ahead and start on Diflucan and keflex. Will have her follow with PCP. Urged to return if worse. Patient agrees with the plan. - Vital Signs Vital signs: Temp Pulse Resp BP Pulse Ox 98.3 F 79 14 127/76 H 100 01/18/19 23:11 01/18/19 23:11 01/18/19 23:11 01/18/19 23:11 01/18/19 23:11 Discharge - Discharge Clinical Impression: Yeast infection UTI (urinary tract infection) Qualifiers: Urinary tract infection type: acute cystitis Hematuria presence: without hematuria Qualified Code(s): N30.00 - Acute cystitis without hematuria Condition: Stable Disposition: HOME, SELF-CARE Instructions: Urinary Tract Infection ([facility]), Vaginal Yeast Infection ([facility]) Additional Instructions: Take medicines as prescribed. Take anti yeast pill at the beginning of the antibiotics and then repeat after completing the antibiotics. Prescriptions: Fluconazole [Diflucan] 150 mg PO ASDIR #2 tablet Cephalexin Monohydrate [Keflex 500 mg Capsule] 500 mg PO BID 7 Days #14 capsule Referrals: MOODY JUAREZ MD [Primary Care Provider] - Follow up in 3-5 days
[2019-01-18 23:41] LABS: APPEARANCE,URINE SLIGHTLY-CLOUDY; BILIRUBIN,URINE NEGATIVE (NEGATIVE); COLOR,URINE YELLOW; GLUCOSE, URINE NEGATIVE (NEGATIVE); KETONES,URINE NEGATIVE (NEGATIVE); LEUKOCYTE ESTERASE,URINE TRACE (NEGATIVE); NITRITE,URINE NEGATIVE (NEGATIVE); PROTEIN,URINE NEGATIVE (NEGATIVE); URINE SPECIFIC GRAVITY 1.027
[2019-01-18 23:42] LABS: BACTERIA (WET MOUNT) 4+ BACTERIA SEEN; EPITHELIALS (WET MOUNT) 3+ EPITHELIALS SEEN; RBCS (WET MOUNT) NO RBCS SEEN; T.VAGINALIS (WET MOUNT) NO TRICHOMONAS SEEN; WBCS (WET MOUNT) 3+ WBCS SEEN; YEAST (WET MOUNT) YEAST SEEN
[2019-01-18] MEDS ORDERED: FLUCONAZOLE 100 MG TABLET PO ONE (23:59)
[2019-01-18] MEDS ORDERED: CEPHALEXIN 500 MG CAPSULE PO ONE (23:59)
== END 2019-01-19 00:05 | disposition home or self-care (01) ==
LOC: ER 23:00
DX: N30.00 Acute cystitis without hematuria (principal); B37.3 Candidiasis of vulva and vagina; R68.83 Chills (without fever); F17.200 Nicotine dependence, unspecified, uncomplicated; I10 Essential (primary) hypertension; E78.00 Pure hypercholesterolemia, unspecified; Z87.440 Personal history of urinary (tract) infections
CPT/HCPCS: 81001; 87210; 99283

== ENCOUNTER 2019-09-05 19:20 | Emergency (ER) | payer OTHER ==
--- NOTE | 2019-09-05 21:04 | RADIOLOGY REPORT (SQ) ---
XR KNEE 4 OR MORE VIEWS CLINICAL STATEMENT: left knee pain COMPARISON: None FINDINGS: Bony alignment is anatomic. There is no fracture or dislocation. The soft tissues are unremarkable. No significant joint effusion. IMPRESSION: No fracture.
[2019-09-05] MEDS ORDERED: CEPHALEXIN 500 MG CAPSULE PO ONE (21:56)
--- NOTE | 2019-09-05 21:57 | ER Document Report ---
HPI - HPI Time Seen by Provider: 09/05/19 19:49 Pain Level: Denies Context: Patient is a 43-year-old female who presents emergency department with a chief complaint of erythema to her right lateral thigh. She states that she noticed had the erythema a couple of days ago. Patient states that she feels she might have gotten a bug bite. States that it is not getting better on its own. She also has complaints of left knee pain. Patient denies any injury. Patient states that she has been cleaning a lot lately and has been doing a lot of bending. Patient denies any fever, body aches, or chills. Patient is able to walk. Denies any numbness or tingling. Patient states, "I think I have arthritis." - ROS Systems Reviewed and Negative: Yes All other systems reviewed and negative - REPRODUCTIVE Reproductive: DENIES: : - MUSCULOSKELETAL Musculoskeletal: REPORTS: Extremity pain - left knee - DERM Skin Problems: Rash - right lateral thigh Past Medical History - Social History Smoking Status: Current Every Day Smoker Family History: Reviewed & Not Pertinent - Past Medical History Cardiac Medical History: Reports: Hx Hypercholesterolemia, Hx Hypertension Renal/ Medical History: Denies: Hx Peritoneal Dialysis Past Surgical History: Reports: Hx Section - x 3 - Immunizations Hx Diphtheria, Pertussis, Tetanus Vaccination: Yes Vertical Provider Document - CONSTITUTIONAL Agree With Documented VS: Yes Exam Limitations: No Limitations General Appearance: No Apparent Distress - INFECTION CONTROL TRAVEL OUTSIDE OF THE [place] IN LAST 30 DAYS: No - HEENT HEENT: Atraumatic, Normocephalic, PERRLA - NECK Neck: Normal Inspection - RESPIRATORY Respiratory: Breath Sounds Normal, No Respiratory Distress - CARDIOVASCULAR Cardiovascular: Regular Rate, Regular Rhythm Pulses: Normal: Radial - MUSCULOSKELETAL/EXTREMETIES Musculoskeletal/Extremeties: FROM, Tender - left knee - NEURO Level of Consciousness: Awake, Alert, Appropriate Motor/Sensory: No Motor Deficit, No Sensory Deficit - DERM Integumentary: Rash - right lateral thigh consistent with cellulitis Course - Re-evaluation Re-evalutation: 09/05/19 Patient presents with symptoms most consistent with an acute cellulitis. Vitals within normal limits. Patient does not meet sepsis criteria is overall very well in appearance. Exam and history are not consistent with DVT. Patient will be started on coverage for both staph and strep. At this time will discharge with return precautions and follow-up recommendations. Verbal discharge instructions given a the bedside and opportunity for questions given. Medication warnings reviewed. Patient is in agreement with this plan and has verbalized understanding of return precautions and the need for primary care follow-up in the next 24-72 hours. X-ray is unremarkable. Advised patient to take ibuprofen and Tylenol for her left knee. She is in agreement with this plan. No motor deficit noted. Capillary refill less than 3 seconds. Dorsalis pedis and posterior tibial pulses 2+. No vascular compromise noted. Follow-up precautions were given. Verbal discharge instructions were given to the patient. They verbalized understanding. They are stable for discharge. - Vital Signs Vital signs: Temp Pulse Resp BP Pulse Ox 98.8 F 87 20 117/89 H 98 09/05/19 19:24 09/05/19 19:24 09/05/19 19:24 09/05/19 19:24 09/05/19 19:24 Discharge - Discharge Clinical Impression: Left knee pain Qualifiers: Chronicity: acute Qualified Code(s): M25.562 - Pain in left knee Cellulitis Qualifiers: Site of cellulitis: extremity Site of cellulitis of extremity: lower extremity Laterality: right Qualified Code(s): L03.115 - Cellulitis of right lower limb Condition: Stable Disposition: HOME, SELF-CARE Additional Instructions: The rash is likely due to infection of your skin. You need to take the antibiotics as prescribed. Do not stop even if the rash goes away until you have completed all the antibiotics. The area of redness was traced out here in the emergency department with a marking pen. You need to return to emergency department if the redness spreads outside of this area by more than 2 cm in any direction. You should also return if you develop fevers with temperature greater than 101, persistent vomiting, worsening pain, or have any other symptoms that are concerning to you. Your knee x-ray was normal. Please make sure you rest, ice, and elevate your need to help with any pain. You can take Tylenol 1000 mg every 6 hours as needed for your pain. Prescriptions: Cephalexin Monohydrate [Keflex 500 mg Capsule] 500 mg PO Q6H 7 Days #28 capsule Referrals: MOODY JUAREZ MD [Primary Care Provider] - Follow up as needed
[2019-09-05 22:06] VITALS: BP 116/80
== END 2019-09-05 22:06 | disposition home or self-care (01) ==
LOC: ER 19:20
DX: L03.115 Cellulitis of right lower limb (principal); M25.562 Pain in left knee; F17.200 Nicotine dependence, unspecified, uncomplicated; I10 Essential (primary) hypertension
CPT/HCPCS: 99282